=== PATIENT | female | born 1985 | race Caucasian/White ===

== ENCOUNTER 2018-11-18 12:59 | Emergency (ER) | payer SELFPAY ==
[2018-11-18] MEDS ORDERED: methylPREDNISolone 125 MG* 2 ML VIAL IV ONE (13:12)
--- NOTE | 2018-11-18 13:12 | ED ---
Allergic Reaction/Systemic - HPI Summary HPI Summary: Patient is a 33 y/o F presenting to ED via EMS with complaints of allergic reaction occurring within the past hour. She was gardening when she was stung by a wasp at her right thigh. She reports onset of diffuse hives, pruritus, and eye puffiness. She notes some throat pruritus but denies SOB, throat swelling, dysphagia. Patient notes that her father had severe allergic reactions to wasp stings and she has had allergic reactions to wasps previously, but none as severe as her present reaction. EMS administered 50 IV mg Benadryl and 0.3 mg IM epinephrine. Home medications and allergies are reviewed. - History of Current Complaint Hx Obtained From: Patient Onset/Duration: Started hours ago - within past hour, Still Present Timing: Lasting Hours Severity Currently: None Pain Intensity: 0 Pain Scale Used: 0-10 Numeric Location: Diffuse Character: Swelling - eyes, Pruritus, Hives Alleviating Factor(s): Antihistamines, Epinephrine Associated Signs And Symptoms: Positive: Other: - negative - dysphagia. Negative: Difficulty Breathing, Throat Tightening - Allergies/Home Medications Allergies/Adverse Reactions: Allergies Allergy/AdvReac Type Severity Reaction Status Date / Time gluten Allergy Unknown Verified 11/18/18 13:05 Reaction Details Wasp Allergy Anaphylatic Uncoded 11/18/18 13:05 Shock PMH/Surg Hx/FS Hx/Imm Hx Sensory History: Denies: Hx Legally Blind, Hx Deafness Opthamlomology History: Denies: Hx Legally Blind EENT History: Denies: Hx Deafness Infectious Disease History: No Infectious Disease History: Denies: Traveled Outside the [place] in Last 30 Days - Family History Known Family History: Positive: Other - father had allergic reactions to bee stings - Social History Alcohol Use: Weekly Substance Use Type: Reports: Marijuana Substance Use Comment - Amount & Last Used: 11/04/18 Smoking Status (MU): Light Every Day Tobacco Smoker Review of Systems ENT: Other - negative - dysphagia and throat swelling; positive - eye puffiness Negative: Shortness Of Breath Skin: Other - positive - diffuse hives, pruritus All Other Systems Reviewed And Are Negative: Yes Physical Exam - Summary Physical Exam Summary: Appearance: Well appearing, no pain distress Skin: warm, dry, reflects adequate perfusion; diffuse, erythematous papular rash is noted. Head/face: normal Eyes: EOMI, BEATRIZ ENT: normal Neck: supple, non-tender Respiratory: CTA, breath sounds present Cardiovascular: RRR, pulses symmetrical Abdomen: non-tender, soft Musculoskeletal: normal, strength/ROM intact Neuro: normal, sensory motor intact, A&Ox3 Triage Information Reviewed: Yes Vital Signs On Initial Exam: Initial Vitals Temp Pulse Resp BP Pulse Ox 98.2 F 75 20 108/57 100 11/18/18 13:00 11/18/18 13:00 11/18/18 13:00 11/18/18 13:00 11/18/18 13:00 Vital Signs Reviewed: Yes Diagnostics - Vital Signs Vital Signs Temp Pulse Resp BP Pulse Ox 11/18/18 13:00 98.2 F 75 20 108/57 100 - Laboratory Lab Statement: Any lab studies that have been ordered have been reviewed, and results considered in the medical decision making process. Re-Evaluation - Re-Evaluation First Eval Re-Evaluation Time: 14:41 Comment: Patient remained stable during ED stay, patient to be discharged to home. She is agreeable with this. Allergic Reaction Course/Dx - Course Course Of Treatment: Patient is a 33 y/o F presenting to ED via EMS with complaints of allergic reaction occurring within the past hour. She was gardening when she was stung by a wasp at her right thigh. She reports onset of diffuse hives, pruritus, and eye puffiness. She notes some throat pruritus but denies SOB, throat swelling, dysphagia. Patient notes that her father had severe allergic reactions to wasp stings and she has had allergic reactions to wasps previously, but none as severe as her present reaction. EMS administered 50 IV mg Benadryl and 0.3 mg IM epinephrine. On physical exam, diffuse, erythematous papular rash is noted. During ED course, patient received solu- medrol 125 mg IV ED ONCE. Patient remained stable during ED stay, patient discharged to home with prescription for Benadryl, Prednisone, and Epi-pen. Patient is agreeable with discharge. - Diagnoses Provider Diagnoses: Allergic reaction to bee sting Discharge - Sign-Out/Discharge Documenting (check all that apply): Patient Departure - discharge Patient Received Moderate/Deep Sedation with Procedure: No - Discharge Plan Condition: Stable Disposition: HOME Prescriptions: diPHENhydraMINE PO* [Benadryl PO 25 MG TAB*] 25 mg PO TID #20 tab EPINEPHrine [Epipen 2-Claude] 0.3 mg IJ ONCE #2 auto.injct predniSONE TAB* [Deltasone TAB*] 50 mg PO ONCE #4 tab Patient Education Materials: General Allergic Reaction (ED) Referrals: [facility] [Outside] - 3 Days Additional Instructions: PLEASE RETURN TO ED FOR ANY NEW OR WORSENING SYMPTOMS. FOLLOW-UP WITH YOUR PRIMARY CARE PHYSICIAN AND ACCOUNTING CLERK WITHIN THREE DAYS. - Billing Disposition and Condition Condition: STABLE Disposition: Home - Attestation Statements Document Initiated by Scribe: Yes Documenting Scribe: CAROLYN GRANT Provider For Whom Nickibkieran is Documenting (Include Credential): ETTA KELLEY MD Scribe Attestation: CAROLYN Ramachandran, scribed for ETTA KELLEY MD on 11/18/18 at 1626. Scribe Documentation Reviewed: Yes Provider Attestation: The documentation as recorded by the CAROLYN ho accurately reflects the service I personally performed and the decisions made by , ETTA KELLEY MD Status of Scribe Document: Viewed
[2018-11-18 14:46] VITALS: BP 117/59
== END 2018-11-18 14:57 | disposition home or self-care (01) ==
LOC: ED 12:59
DX: T63.441A Toxic effect of venom of bees, accidental (unintentional), initial encounter (principal); Y92.9 Unspecified place or not applicable; F17.210 Nicotine dependence, cigarettes, uncomplicated
CPT/HCPCS: 96374; 99283; J2930